=== PATIENT | female | born 1985 | race Caucasian/White ===

== ENCOUNTER 2024-12-07 01:19 | Emergency (ER) | payer OTHER ==
[~2024-12-07] VITALS: Ht 172.7 cm; Wt 95.0 kg
[~2024-12-07 01:19] MED LIST: MACROBID 100 M100 MG PO
[2024-12-07] MEDS ORDERED: IBUPROFEN 600 MG TAB PO ONE (01:45)
[2024-12-07] MEDS ORDERED: TRAMADOL HCL 50 MG HOME.PACK PO ONE (02:00)
[2024-12-07 02:05] VITALS: BP 139/89
== END 2024-12-07 02:05 | disposition home or self-care (01) ==
LOC: ED 01:19
DX: S93.402A Sprain of unspecified ligament of left ankle, initial encounter (principal); F17.200 Nicotine dependence, unspecified, uncomplicated; Z88.8 Allergy status to other drugs, medicaments and biological substances; X50.1XXA Overexertion from prolonged static or awkward postures, initial encounter
CPT/HCPCS: 73610; 99283; A9270